=== PATIENT | female | born 1975 | race African-American/Black ===

== ENCOUNTER 2023-02-17 00:41 | Inpatient (IN) | payer OTHER ==
[~2023-02-17] VITALS: Ht 175.3 cm; Wt 84.8 kg
[2023-02-17] VITALS (67 sets, daily range): BP systolic 78–106; BP diastolic 37–78; PULSE 97–141; RESP 7–46; TEMP 97.2–97.9
[2023-02-17] MEDS ORDERED: ALBUTEROL (0.083%) 2.5MG/3ML NEB HHN STA (00:50)
[2023-02-17] MEDS ORDERED: FUROSEMIDE 40MG/4ML VIAL IV ONE (01:00)
[2023-02-17] MEDS ORDERED: ONDANSETRON HCL 4MG/2ML INJ IV ONE (01:00)
[2023-02-17] MEDS ORDERED: DILTIAZEM HCL 5MG/ML 5ML VIAL IV ONE ×3 (01:15→02:30)
[2023-02-17 01:19] LABS: CHLORIDE 108 mEq/L (98-107); HCG SCREEN NEGATIVE
[2023-02-17 01:37] LABS: BASOPHILS % 0.3 % (0.0-2.0); EOSINOPHILS % 0.1 % (0.0-5.0); LYMPHOCYTES % 11.1 % (20.0-50.0); MEAN CORPUSCULAR HEMOGLOBIN 19.8 pg (28.0-32.0); MEAN CORPUSCULAR VOLUME 73.1 fL (81.0-99.0); MEAN PLATELET VOLUME 8.5 fl (7.4-10.4); MONOCYTES % 3.5 % (2.0-8.0); PLATELET 310 x1000/uL (130-400); RED BLOOD CELL COUNT 3.51 mill/uL (4.2-5.4); RED CELL DISTRIBUTION WIDTH 22.2 % (11.6-14.6)
[2023-02-17 01:41] LABS: HEMATOCRIT. 25.7 % (36.0-48.0); HEMOGLOBIN. 6.9 g/dL (12.0-16.0)
[2023-02-17] MEDS ORDERED: PROPOFOL 10MG/ML 100ML 100 ML IV STA (01:52)
[2023-02-17] MEDS ORDERED: CLONIDINE 0.1MG TABLET PO PRN (03:30)
[2023-02-17] MEDS ORDERED: DOCUSATE SODIUM 100MG CAPSULE PO PRN (03:30)
[2023-02-17] MEDS ORDERED: MAGNESIUM/ALUMINUM HYDROXIDE/SIMETHICONE 30ML UDC PO PRN (03:30)
[2023-02-17] MEDS ORDERED: ONDANSETRON HCL 4MG/2ML INJ IV PRN (03:30)
[2023-02-17] MEDS ORDERED: DEXTROSE 50% WATER 50ML SYRINGE IV PRN (03:30)
[2023-02-17] MEDS ORDERED: GUAIFENESIN 200MG/10ML SUGAR FREE UDC PO PRN (03:30)
[2023-02-17] MEDS ORDERED: IPRATROPIUM/ALBUTEROL 0.5-3(2.5)MG/3ML NEB HHN PRN (03:30)
[2023-02-17 03:32] LABS: BG BASE EXCESS -13.1 mmol/L (-2.0-2.0); BG CARBOXYHEMOGLOBIN 1.3 % (0.5-1.5); BG DEOXYHEMOGLOBIN 7.8 % (0.0-5.0); BG FRACTION INSPIRED OXYGEN 100; BG METHEMOGLOBIN 0.6 % (0.0-1.5); BG OXYHEMOGLOBIN 90.3 % (94.0-97.0); BG PCO2 30.4 mmHg (35.0-45.0); BG PH 7.248 (7.350-7.450); BG PO2 80.2 mmHg (75.0-100.0); BG SAMPLE SITE RIGHT RADIAL; BG TOTAL HEMOGLOBIN 8.2 g/dL (12.0-18.0); BG TOTAL RESPIRATORY RATE 43 b/min; BG VENT MODE VENT - AC
[2023-02-17] MEDS ORDERED: MIDAZOLAM 100MG/100ML PMX 100 ML IV PRN ×2 (03:45→13:00)
[2023-02-17 03:49] LABS: PLATELET ESTIMATE NORMAL
[2023-02-17] MEDS ORDERED: MIDAZOLAM HCL 100 MG in SODIUM CHLORIDE 0.9% 100 ML IV PRN (04:00)
[2023-02-17 04:55] LABS: T4 FREE 1.36 ng/dL (0.76-1.46)
[2023-02-17] MEDS ORDERED: OCTREOTIDE 1,000 MCG in SODIUM CHLORIDE 0.9% 98 ML IV PRN (05:00)
[2023-02-17] MEDS ORDERED: DEXT 5%/0.45% NACL 1000ML 1,000 ML IV ONE (05:30)
[2023-02-17] MEDS ORDERED: PIPERACILLIN/TAZ 3.375G PREMIX 50 ML IV NR (05:45)
[2023-02-17] MEDS ORDERED: VANCOMYCIN 1500MG in DEXTROSE 5% WATER 250ML IV NR (06:00)
[2023-02-17 06:12] LABS: CLARITY URINE CLOUDY (CLEAR); COLOR URINE YELLOW (YELLOW); KETONES URINE NEGATIVE (NEGATIVE); LEUKOCYTE ESTERASE URINE NEGATIVE (NEGATIVE); NITRITE URINE NEGATIVE (NEGATIVE); OCCULT BLOOD URINE 1+ (NEGATIVE); PROTEIN URINE 1+ (NEGATIVE); SPECIFIC GRAVITY URINE 1.008 (1.005-1.030); UROBILINOGEN URINE 0.2 E.U./dL (0.2-1.0)
[2023-02-17] MEDS ORDERED: PHENYLEPHRINE 100 MG in DEXT 5% WATER 240 ML IV PRN (06:15)
[2023-02-17] MEDS: OCTREOTIDE 1,000 MCG in SODIUM CHLORIDE 0.9% 98 ML IV PRN (06:16)
[2023-02-17] MEDS ORDERED: FENTANYL CITRATE/PF 2,500 MCG in SODIUM CHLORIDE 0.9% 200 ML IV PRN (06:45)
[2023-02-17 07:27] LABS: *AMPHETAMINES SCREEN URINE NEGATIVE (NEGATIVE); *BARBITURATES SCREEN URINE NEGATIVE (NEGATIVE); *BENZODIAZEPINES SCREEN URINE NEGATIVE (NEGATIVE); *COCAINE SCREEN URINE NEGATIVE (NEGATIVE); METHADONE URINE SCREEN NEGATIVE (NEGATIVE); OPIATES URINE SCREEN NEGATIVE (NEGATIVE); PHENCYCLIDINE URINE SCREEN NEGATIVE (NEGATIVE)
[2023-02-17 07:35] LABS: CANNABINOID URINE SCREEN PRESUMTIVE POSITIVE (NEGATIVE)
[2023-02-17] MEDS: PHENYLEPHRINE 100 MG in DEXT 5% WATER 240 ML IV PRN (08:00)
[2023-02-17] MEDS: FENTANYL CITRATE/PF 2,500 MCG in SODIUM CHLORIDE 0.9% 200 ML IV PRN (08:00)
[2023-02-17] MEDS ORDERED: LIDOCAINE HCL 1% 10 MG/ML 10ML VIAL ONE (08:45)
[2023-02-17] MEDS ORDERED: FUROSEMIDE 40MG/4ML VIAL IVP SCH (09:00)
[2023-02-17] MEDS ORDERED: PANTOPRAZOLE SODIUM 40 MG/VIAL IV SCH (09:00)
[2023-02-17 09:07] LABS: BG BASE EXCESS -10.6 mmol/L (-2.0-2.0); BG DEOXYHEMOGLOBIN 35.9 % (0.0-5.0); BG FRACTION INSPIRED OXYGEN 100; BG HCO3 ACT 15.5 mmol/L (22.0-26.0); BG METHEMOGLOBIN 0.7 % (0.0-1.5); BG OXYGEN SATURATION 63.5 % (92.0-98.5); BG OXYHEMOGLOBIN 62.4 % (94.0-97.0); BG PCO2 34.9 mmHg (35.0-45.0); BG PH 7.265 (7.350-7.450); BG PO2 40.4 mmHg (75.0-100.0); BG SAMPLE SITE RIGHT RADIAL; BG VENT MODE VENT - AC
[2023-02-17] MEDS: BLOOD SUGAR DIAGNOSTIC STRIP TEST SCH ×4 (09:33→18:00)
[2023-02-17] MEDS: INSULIN LISPRO 100 UNITS/ML SUBCUT SCH ×4 (10:25→18:00)
[2023-02-17] MEDS: IRON SUCROSE COMPLEX 100 MG/5 ML ML IV SCH (10:26)
[2023-02-17] MEDS: PANTOPRAZOLE SODIUM 40 MG/VIAL IV SCH ×2 (10:26→18:05)
[2023-02-17 11:02] LABS: BG BASE EXCESS -11.1 mmol/L (-2.0-2.0); BG DEOXYHEMOGLOBIN 0.4 % (0.0-5.0); BG FRACTION INSPIRED OXYGEN 100; BG HCO3 ACT 13.5 mmol/L (22.0-26.0); BG METHEMOGLOBIN 0.3 % (0.0-1.5); BG OXYGEN SATURATION 99.6 % (92.0-98.5); BG OXYHEMOGLOBIN 98.3 % (94.0-97.0); BG PCO2 25.9 mmHg (35.0-45.0); BG PH 7.335 (7.350-7.450); BG PO2 225.7 mmHg (75.0-100.0); BG SAMPLE SITE RIGHT BRACHIAL; BG TOTAL HEMOGLOBIN 8.3 g/dL (12.0-18.0); BG VENT MODE VENT - AC
[2023-02-17 11:46] LABS: HEMATOCRIT 26.4 % (36.0-48.0); HEMOGLOBIN 7.3 g/dL (12.0-16.0)
[2023-02-17 11:58] LABS: INR 2.6; PARTIAL THROMBOPLASTIN TIME 52.5 sec (23.4-31.0); PROTHROMBIN TIME 25.9 sec (9.6-11.0)
[2023-02-17 12:02] LABS: CREATINE KINASE 418 IU/L (26-192); CREATINE KINASE MB FRACTION 7.5 ng/mL (0.5-3.6); ETHANOL BLOOD < 10 mg/dL (-10)
[2023-02-17] MEDS: THIAMINE HCL 100 MG in SODIUM CHLORIDE 0.9% 49 ML IV SCH (13:21)
[2023-02-17] MEDS: PHYTONADIONE 10MG/ML AMP SUBCUT SCH (13:33)
[2023-02-17] MEDS: MIDAZOLAM HCL 100 MG in SODIUM CHLORIDE 0.9% 100 ML IV PRN (13:58)
[2023-02-17] MEDS ORDERED: PIPERACILLIN/TAZOBACTAM 3.375 G in DEXTROSE 5% WATER 50 ML IV SCH (14:00)
[2023-02-17] MEDS: IPRATROPIUM/ALBUTEROL 0.5-3(2.5)MG/3ML NEB HHN SCH ×2 (14:51→21:26)
[2023-02-17] MEDS: PIPERACILLIN/TAZOBACTAM 3.375 G in DEXTROSE 5% WATER 50 ML IV SCH ×2 (16:48→21:45)
[2023-02-17] MEDS ORDERED: LORAZEPAM 2MG/ML CPJ IM PRN (17:15)
[2023-02-17 17:24] LABS: HEMATOCRIT 28.4 % (36.0-48.0); HEMOGLOBIN 7.9 g/dL (12.0-16.0)
[2023-02-17] MEDS: SODIUM CHLORIDE 0.45% 1,000 ML IV SCH (19:00)
[2023-02-17] MEDS ORDERED: SODIUM CHLORIDE 0.9% 500 ML IV ONE (19:15)
[2023-02-18] VITALS (102 sets, daily range): BP systolic 77–157; BP diastolic 38–81; PULSE 105–146; RESP 15–29; TEMP 97–98.8
[2023-02-18] MEDS: OCTREOTIDE 1,000 MCG in SODIUM CHLORIDE 0.9% 98 ML IV PRN ×2 (01:45→17:19)
[2023-02-18] MEDS: BLOOD SUGAR DIAGNOSTIC STRIP TEST SCH ×4 (01:55→17:48)
[2023-02-18] MEDS: INSULIN LISPRO 100 UNITS/ML SUBCUT SCH ×4 (01:58→17:48)
[2023-02-18] MEDS: IPRATROPIUM/ALBUTEROL 0.5-3(2.5)MG/3ML NEB HHN SCH ×3 (02:02→14:57)
[2023-02-18] MEDS: MIDAZOLAM HCL 100 MG in SODIUM CHLORIDE 0.9% 100 ML IV PRN ×2 (04:45→19:38)
[2023-02-18] MEDS: FENTANYL CITRATE/PF 2,500 MCG in SODIUM CHLORIDE 0.9% 200 ML IV PRN (05:45)
[2023-02-18] MEDS: PHENYLEPHRINE 100 MG in DEXT 5% WATER 240 ML IV PRN ×2 (05:45→13:42)
[2023-02-18] MEDS: PIPERACILLIN/TAZOBACTAM 3.375 G in DEXTROSE 5% WATER 50 ML IV SCH ×3 (06:00→21:35)
[2023-02-18] MEDS: PANTOPRAZOLE SODIUM 40 MG/VIAL IV SCH ×2 (06:00→17:50)
[2023-02-18 06:05] LABS: BASOPHILS % 0.3 % (0.0-2.0); EOSINOPHILS % 1.3 % (0.0-5.0); HEMATOCRIT. 31.2 % (36.0-48.0); HEMOGLOBIN. 8.9 g/dL (12.0-16.0); LYMPHOCYTES % 8.4 % (20.0-50.0); MEAN CORPUSCULAR HEMOGLOBIN 20.7 pg (28.0-32.0); MEAN CORPUSCULAR VOLUME 72.6 fL (81.0-99.0); MONOCYTES % 3.6 % (2.0-8.0); NEUTROPHILS % 86.4 % (40.0-76.0); PLATELET 251 x1000/uL (130-400)
[2023-02-18 06:08] LABS: CHLORIDE 107 mEq/L (98-107)
[2023-02-18] MEDS ORDERED: LACTULOSE 20G/30ML UDC PO NR (07:00)
[2023-02-18] MEDS ORDERED: SODIUM CHLORIDE 0.9% 500 ML IV ONE ×2 (08:45→09:45)
[2023-02-18] MEDS ORDERED: VANCOMYCIN 1.25GM PMX (XELLIA) 250 ML IV SCH (09:00)
[2023-02-18] MEDS ORDERED: LACTULOSE ENEMA 1,000ML BOTTLE PR NR (09:00)
[2023-02-18 09:04] LABS: INR 2.4; PROTHROMBIN TIME 24.1 sec (9.6-11.0)
[2023-02-18] MEDS: PHYTONADIONE 10MG/ML AMP SUBCUT SCH (09:09)
[2023-02-18] MEDS: IRON SUCROSE COMPLEX 100 MG/5 ML ML IV SCH (09:09)
[2023-02-18] MEDS: THIAMINE HCL 100 MG in SODIUM CHLORIDE 0.9% 49 ML IV SCH (09:10)
[2023-02-18] MEDS: VANCOMYCIN 1250MG in DEXTROSE 5% WATER 250ML IV SCH ×2 (09:10→21:35)
[2023-02-18 09:36] LABS: HEMATOCRIT 31.2 % (36.0-48.0); HEMOGLOBIN 8.9 g/dL (12.0-16.0)
[2023-02-18 09:50] LABS: BG BASE EXCESS -10.3 mmol/L (-2.0-2.0); BG CARBOXYHEMOGLOBIN 0.9 % (0.5-1.5); BG DEOXYHEMOGLOBIN 23.4 % (0.0-5.0); BG FRACTION INSPIRED OXYGEN 45; BG HCO3 ACT 17.8 mmol/L (22.0-26.0); BG METHEMOGLOBIN 0.4 % (0.0-1.5); BG OXYGEN SATURATION 76.3 % (92.0-98.5); BG OXYHEMOGLOBIN 75.3 % (94.0-97.0); BG PH 7.177 (7.350-7.450); BG PO2 51.9 mmHg (75.0-100.0); BG SAMPLE SITE LEFT RADIAL; BG TOTAL HEMOGLOBIN 10.5 g/dL (12.0-18.0); BG VENT MODE VENT - AC
[2023-02-18 10:09] LABS: HEPATITIS B SURFACE ANTIGEN NEGATIVE
[2023-02-18] MEDS ORDERED: EPINEPHRINE 5 MG in DEXT 5% WATER 250 ML IV PRN (12:00)
[2023-02-18] MEDS ORDERED: NOREPINEPHRINE 8 MG in DEXT 5% WATER 250 ML IV PRN (12:00)
[2023-02-18] MEDS: LACTULOSE 20G/30ML UDC PO SCH ×2 (12:43→17:50)
[2023-02-18] MEDS: SODIUM CHLORIDE 0.45% 1,000 ML IV SCH (12:43)
[2023-02-18] MEDS ORDERED: POLYMYXIN B SULFATE 500000 UNITS/VIAL ONE (13:08)
[2023-02-18] MEDS ORDERED: BUPIVACAINE HCL/PF 0.5% (5MG/ML) 10ML ONE (13:08)
[2023-02-18] MEDS ORDERED: SKIN ADHESIVE 0.7 GM EA TOP ONE (13:08)
[2023-02-18] MEDS ORDERED: CHLORHEXIDINE GLUCONATE 4% EXTERNAL USE TOP SCH ×2 (15:00→21:00)
[2023-02-18] MEDS ORDERED: ALBUMIN HUMAN 12.5GM/50ML (25%) IV ONE (15:15)
[2023-02-18] MEDS ORDERED: ROCURONIUM BROMIDE 10MG/ML VIAL 5ML IV ONE (15:27)
[2023-02-18] MEDS ORDERED: CEFAZOLIN SODIUM 1000MG/VIAL ONE (16:47)
[2023-02-19] VITALS (108 sets, daily range): BP systolic 84–137; BP diastolic 40–93; PULSE 72–128; RESP 4–40; TEMP 97–98.9
[2023-02-19] MEDS ORDERED: NOREPINEPHRINE 8MG/250ML PMX 250 ML IV PRN (00:45)
[2023-02-19] MEDS: LACTULOSE 20G/30ML UDC PO SCH ×4 (00:48→17:44)
[2023-02-19] MEDS: INSULIN LISPRO 100 UNITS/ML SUBCUT SCH ×5 (00:53→17:48)
[2023-02-19] MEDS ORDERED: NOREPINEPHRINE 8 MG in DEXTROSE 5% WATER 250 ML IV PRN (01:00)
[2023-02-19] MEDS: IPRATROPIUM/ALBUTEROL 0.5-3(2.5)MG/3ML NEB HHN SCH ×4 (01:20→19:59)
[2023-02-19] MEDS: PHENYLEPHRINE 100 MG in DEXT 5% WATER 240 ML IV PRN ×4 (01:37→21:45)
[2023-02-19] MEDS: SODIUM CHLORIDE 0.45% 1,000 ML IV SCH ×2 (04:57→18:49)
[2023-02-19 05:51] LABS: HEMATOCRIT. 30.2 % (36.0-48.0); HEMOGLOBIN. 8.7 g/dL (12.0-16.0); MEAN CORPUSCULAR HEMOGLOBIN 19.9 pg (28.0-32.0); MEAN CORPUSCULAR VOLUME 68.9 fL (81.0-99.0); MEAN PLATELET VOLUME 8.6 fl (7.4-10.4); PLATELET 236 x1000/uL (130-400); RED BLOOD CELL COUNT 4.38 mill/uL (4.2-5.4); RED CELL DISTRIBUTION WIDTH 23.8 % (11.6-14.6)
[2023-02-19] MEDS: BLOOD SUGAR DIAGNOSTIC STRIP TEST SCH ×4 (05:52→17:41)
[2023-02-19] MEDS: PANTOPRAZOLE SODIUM 40 MG/VIAL IV SCH ×2 (05:57→17:44)
[2023-02-19] MEDS: PIPERACILLIN/TAZOBACTAM 3.375 G in DEXTROSE 5% WATER 50 ML IV SCH ×3 (05:58→21:00)
[2023-02-19 06:04] LABS: INR 2.1; PROTHROMBIN TIME 21.9 sec (9.6-11.0)
[2023-02-19 07:12] LABS: CHLORIDE 105 mEq/L (98-107)
[2023-02-19 07:23] LABS: PHOSPHORUS 3.6 mg/dL (2.5-4.9)
[2023-02-19] MEDS ORDERED: CHLORHEXIDINE GLUCONATE 4% EXTERNAL USE TOP SCH (09:00)
[2023-02-19 09:21] LABS: BG BASE EXCESS -8.2 mmol/L (-2.0-2.0); BG CARBOXYHEMOGLOBIN 0.2 % (0.5-1.5); BG DEOXYHEMOGLOBIN 0.4 % (0.0-5.0); BG FRACTION INSPIRED OXYGEN 80; BG HCO3 ACT 18.3 mmol/L (22.0-26.0); BG METHEMOGLOBIN 0.3 % (0.0-1.5); BG OXYGEN SATURATION 99.6 % (92.0-98.5); BG OXYHEMOGLOBIN 99.1 % (94.0-97.0); BG PCO2 41.8 mmHg (35.0-45.0); BG PH 7.259 (7.350-7.450); BG PO2 234.3 mmHg (75.0-100.0); BG SAMPLE SITE ALINE; BG TOTAL HEMOGLOBIN 8.9 g/dL (12.0-18.0); BG VENT MODE VENT - AC
[2023-02-19] MEDS: VANCOMYCIN 1250MG in DEXTROSE 5% WATER 250ML IV SCH (09:34)
[2023-02-19] MEDS: THIAMINE HCL 100 MG in SODIUM CHLORIDE 0.9% 49 ML IV SCH (09:34)
[2023-02-19] MEDS: IRON SUCROSE COMPLEX 100 MG/5 ML ML IV SCH (09:34)
[2023-02-19] MEDS: PHYTONADIONE 10MG/ML AMP SUBCUT SCH (09:35)
[2023-02-19] MEDS: OCTREOTIDE 1,000 MCG in SODIUM CHLORIDE 0.9% 98 ML IV PRN (13:22)
[2023-02-19 13:58] LABS: NUCLEATED RED BLOOD CELLS 17 /100 WBC
[2023-02-19 14:05] LABS: PLATELET ESTIMATE NORMAL
[2023-02-19] MEDS ORDERED: SODIUM CHLORIDE 0.9% 250 ML IV ONE (16:30)
[2023-02-19] MEDS: RIFAXIMIN 550 MG TABLET GT SCH (21:00)
[2023-02-20] VITALS (108 sets, daily range): BP systolic 72–149; BP diastolic 43–105; PULSE 103–166; RESP 6–46; TEMP 97–98.1
[2023-02-20] MEDS: BLOOD SUGAR DIAGNOSTIC STRIP TEST SCH ×4 (00:31→17:23)
[2023-02-20] MEDS: INSULIN LISPRO 100 UNITS/ML SUBCUT SCH ×6 (00:42→22:45)
[2023-02-20] MEDS: LACTULOSE 20G/30ML UDC PO SCH ×4 (00:42→17:23)
[2023-02-20] MEDS: IPRATROPIUM/ALBUTEROL 0.5-3(2.5)MG/3ML NEB HHN SCH ×4 (01:54→21:00)
[2023-02-20] MEDS ORDERED: FUROSEMIDE 20MG/2ML VIAL IVP NR (02:00)
[2023-02-20 05:19] LABS: CHLORIDE 107 mEq/L (98-107)
[2023-02-20 05:23] LABS: HEMATOCRIT. 29.1 % (36.0-48.0); HEMOGLOBIN. 8.6 g/dL (12.0-16.0); MEAN CORPUSCULAR HEMOGLOBIN 20.2 pg (28.0-32.0); MEAN CORPUSCULAR VOLUME 68.5 fL (81.0-99.0); MEAN PLATELET VOLUME 8.5 fl (7.4-10.4); PLATELET 200 x1000/uL (130-400); RED BLOOD CELL COUNT 4.26 mill/uL (4.2-5.4); RED CELL DISTRIBUTION WIDTH 23.6 % (11.6-14.6)
[2023-02-20 05:27] LABS: PHOSPHORUS 2.4 mg/dL (2.5-4.9)
[2023-02-20] MEDS ORDERED: POTASSIUM CHLORIDE 20MEQ/PACKET NG NR (06:00)
[2023-02-20] MEDS ORDERED: MAGNESIUM 1 G PREMIX 100 ML IV NR (06:00)
[2023-02-20] MEDS: PANTOPRAZOLE SODIUM 40 MG/VIAL IV SCH ×2 (06:12→17:22)
[2023-02-20] MEDS: PIPERACILLIN/TAZOBACTAM 3.375 G in DEXTROSE 5% WATER 50 ML IV SCH ×3 (06:12→22:43)
[2023-02-20] MEDS ORDERED: DEXTROSE 50% WATER 50ML SYRINGE IV PRN (07:45)
[2023-02-20 08:08] LABS: HIV SCREEN 4G Non Reactive (Non Reactive)
[2023-02-20 08:26] LABS: BG BASE EXCESS -3.8 mmol/L (-2.0-2.0); BG CARBOXYHEMOGLOBIN 1.2 % (0.5-1.5); BG DEOXYHEMOGLOBIN 0.6 % (0.0-5.0); BG FRACTION INSPIRED OXYGEN 50; BG HCO3 ACT 20.3 mmol/L (22.0-26.0); BG METHEMOGLOBIN 0.5 % (0.0-1.5); BG OXYGEN SATURATION 99.4 % (92.0-98.5); BG OXYHEMOGLOBIN 97.7 % (94.0-97.0); BG PH 7.407 (7.350-7.450); BG PO2 182.4 mmHg (75.0-100.0); BG SAMPLE SITE ALINE; BG TOTAL HEMOGLOBIN 8.9 g/dL (12.0-18.0); BG TOTAL RESPIRATORY RATE 20 b/min; BG VENT MODE VENT - AC
[2023-02-20] MEDS: SODIUM CHLORIDE 0.45% 1,000 ML IV SCH ×2 (08:28→22:42)
[2023-02-20] MEDS: MIDODRINE HCL 5MG TABLET PO SCH ×4 (08:28→17:23)
[2023-02-20] MEDS ORDERED: POTASSIUM PHOS,M-BASIC-D-BASIC 10 MMOL in DEXT 5% WATER 246.6667 ML IV NR (09:00)
[2023-02-20] MEDS: THIAMINE HCL 100 MG in SODIUM CHLORIDE 0.9% 49 ML IV SCH (09:11)
[2023-02-20] MEDS: RIFAXIMIN 550 MG TABLET GT SCH ×2 (09:12→22:46)
[2023-02-20] MEDS: VANCOMYCIN 1G PREMIX 200 ML IV SCH (09:12)
[2023-02-20] MEDS: PHYTONADIONE 10MG/ML AMP SUBCUT SCH (09:12)
[2023-02-20 10:57] LABS: NUCLEATED RED BLOOD CELLS 62 /100 WBC
[2023-02-20 11:00] LABS: PLATELET ESTIMATE NORMAL
[2023-02-20] MEDS: PHENYLEPHRINE 100 MG in DEXT 5% WATER 240 ML IV PRN (11:15)
[2023-02-20] MEDS: FENTANYL CITRATE/PF 2,500 MCG in SODIUM CHLORIDE 0.9% 200 ML IV PRN (16:00)
[2023-02-20] MEDS ORDERED: FUROSEMIDE 40MG/4ML VIAL IVP NR (20:30)
[2023-02-21] VITALS (107 sets, daily range): BP systolic 85–255; BP diastolic 50–246; PULSE 100–135; RESP 17–53; TEMP 97.7–98.9
[2023-02-21] MEDS: LACTULOSE 20G/30ML UDC PO SCH ×4 (00:42→17:32)
[2023-02-21] MEDS: IPRATROPIUM/ALBUTEROL 0.5-3(2.5)MG/3ML NEB HHN SCH ×4 (02:21→20:48)
[2023-02-21] MEDS: BLOOD SUGAR DIAGNOSTIC STRIP TEST SCH ×4 (06:00→17:35)
[2023-02-21] MEDS: PIPERACILLIN/TAZOBACTAM 3.375 G in DEXTROSE 5% WATER 50 ML IV SCH ×3 (06:13→21:02)
[2023-02-21] MEDS: PANTOPRAZOLE SODIUM 40 MG/VIAL IV SCH ×2 (06:13→17:32)
[2023-02-21 06:22] LABS: HEMATOCRIT. 36.3 % (36.0-48.0); HEMOGLOBIN. 11.1 g/dL (12.0-16.0); MEAN CORPUSCULAR HEMOGLOBIN 21.4 pg (28.0-32.0); MEAN PLATELET VOLUME 8.6 fl (7.4-10.4); PLATELET 155 x1000/uL (130-400); RED BLOOD CELL COUNT 5.18 mill/uL (4.2-5.4); RED CELL DISTRIBUTION WIDTH 26.2 % (11.6-14.6)
[2023-02-21 06:34] LABS: CHLORIDE 105 mEq/L (98-107)
[2023-02-21 06:35] LABS: INR 1.4
[2023-02-21 06:44] LABS: PHOSPHORUS 2.2 mg/dL (2.5-4.9)
[2023-02-21] MEDS ORDERED: POTASSIUM CHLORIDE 20MEQ/PACKET PO NR ×2 (07:45→16:00)
[2023-02-21] MEDS: VANCOMYCIN 1G PREMIX 200 ML IV SCH (08:10)
[2023-02-21] MEDS: RIFAXIMIN 550 MG TABLET GT SCH ×2 (08:10→21:02)
[2023-02-21] MEDS: MIDODRINE HCL 5MG TABLET PO SCH ×3 (08:11→17:33)
[2023-02-21] MEDS: INSULIN LISPRO 100 UNITS/ML SUBCUT SCH ×3 (08:12→17:35)
[2023-02-21 08:55] LABS: BG DEOXYHEMOGLOBIN 2.6 % (0.0-5.0); BG FRACTION INSPIRED OXYGEN 35; BG HCO3 ACT 21.9 mmol/L (22.0-26.0); BG METHEMOGLOBIN 0.3 % (0.0-1.5); BG OXYGEN SATURATION 97.4 % (92.0-98.5); BG OXYHEMOGLOBIN 97.1 % (94.0-97.0); BG PCO2 34.3 mmHg (35.0-45.0); BG PH 7.423 (7.350-7.450); BG PO2 100.6 mmHg (75.0-100.0); BG SAMPLE SITE ALINE; BG TOTAL HEMOGLOBIN 10.8 g/dL (12.0-18.0); BG TOTAL RESPIRATORY RATE 20 b/min; BG VENT MODE VENT - AC
[2023-02-21] MEDS ORDERED: POTASSIUM PHOS,M-BASIC-D-BASIC 10 MMOL in DEXT 5% WATER 246.6667 ML IV NR (09:00)
[2023-02-21] MEDS: INSULIN GLARGINE 100 UNITS/ML SUBCUT SCH (09:51)
[2023-02-21] MEDS: SODIUM CHLORIDE 0.45% 1,000 ML IV SCH (13:05)
[2023-02-21] MEDS: METOCLOPRAMIDE HCL 10MG/2ML VIAL IV SCH ×2 (14:30→17:33)
[2023-02-21 14:58] LABS: ATYPICAL LYMPHOCYTES 1; NUCLEATED RED BLOOD CELLS 97 /100 WBC; PLATELET ESTIMATE NORMAL
[2023-02-22] VITALS (101 sets, daily range): BP systolic 86–176; BP diastolic 58–128; PULSE 99–152; RESP 16–39; TEMP 97.8–99.2
[2023-02-22] MEDS: BLOOD SUGAR DIAGNOSTIC STRIP TEST SCH ×5 (00:05→23:42)
[2023-02-22] MEDS: LACTULOSE 20G/30ML UDC PO SCH ×5 (00:09→23:43)
[2023-02-22] MEDS: METOCLOPRAMIDE HCL 10MG/2ML VIAL IV SCH ×5 (00:09→23:43)
[2023-02-22] MEDS: VANCOMYCIN 1G PREMIX 200 ML IV SCH ×2 (00:09→17:59)
[2023-02-22] MEDS: INSULIN LISPRO 100 UNITS/ML SUBCUT SCH ×5 (00:10→23:42)
[2023-02-22] MEDS: SODIUM CHLORIDE 0.45% 1,000 ML IV SCH ×2 (00:10→18:01)
[2023-02-22] MEDS: IPRATROPIUM/ALBUTEROL 0.5-3(2.5)MG/3ML NEB HHN SCH ×2 (02:34→09:25)
[2023-02-22] MEDS: PHENYLEPHRINE 100 MG in DEXT 5% WATER 240 ML IV PRN (02:37)
[2023-02-22] MEDS: PIPERACILLIN/TAZOBACTAM 3.375 G in DEXTROSE 5% WATER 50 ML IV SCH ×3 (05:37→21:27)
[2023-02-22] MEDS: PANTOPRAZOLE SODIUM 40 MG/VIAL IV SCH ×2 (05:37→17:58)
[2023-02-22 06:21] LABS: HEMATOCRIT. 35.6 % (36.0-48.0); MEAN CORPUSCULAR HEMOGLOBIN 22.3 pg (28.0-32.0); MEAN CORPUSCULAR VOLUME 71.7 fL (81.0-99.0); MEAN PLATELET VOLUME 8.5 fl (7.4-10.4); PLATELET 123 x1000/uL (130-400); RED BLOOD CELL COUNT 4.96 mill/uL (4.2-5.4); RED CELL DISTRIBUTION WIDTH 26.7 % (11.6-14.6)
[2023-02-22 06:29] LABS: INR 1.4; PROTHROMBIN TIME 14.9 sec (9.6-11.0)
[2023-02-22 06:32] LABS: CHLORIDE 105 mEq/L (98-107)
[2023-02-22 06:42] LABS: PHOSPHORUS 2.1 mg/dL (2.5-4.9)
[2023-02-22] MEDS ORDERED: POTASSIUM CHLORIDE 20MEQ/PACKET PO SCH (07:45)
[2023-02-22] MEDS ORDERED: MAGNESIUM 2 G PREMIX 50 ML IV ONE (07:45)
[2023-02-22] MEDS ORDERED: POTASSIUM PHOS,M-BASIC-D-BASIC 15 MMOL in DEXT 5% WATER 245 ML IV SCH (08:30)
[2023-02-22 08:55] LABS: BG BASE EXCESS -1.1 mmol/L (-2.0-2.0); BG CARBOXYHEMOGLOBIN 1.2 % (0.5-1.5); BG DEOXYHEMOGLOBIN 4.4 % (0.0-5.0); BG FRACTION INSPIRED OXYGEN 35; BG METHEMOGLOBIN 0.3 % (0.0-1.5); BG OXYGEN SATURATION 95.5 % (92.0-98.5); BG OXYHEMOGLOBIN 94.1 % (94.0-97.0); BG PCO2 36.2 mmHg (35.0-45.0); BG PO2 75.6 mmHg (75.0-100.0); BG SAMPLE SITE RIGHT RADIAL; BG TOTAL HEMOGLOBIN 13.1 g/dL (12.0-18.0); BG VENT MODE VENT - AC
[2023-02-22] MEDS: RIFAXIMIN 550 MG TABLET GT SCH ×2 (08:58→21:27)
[2023-02-22] MEDS: MIDODRINE HCL 5MG TABLET PO SCH ×3 (08:58→17:00)
[2023-02-22] MEDS ORDERED: POTASSIUM PHOS,M-BASIC-D-BASIC 20 MMOL in DEXT 5% WATER 243.3333 ML IV NR (09:00)
[2023-02-22] MEDS: INSULIN GLARGINE 100 UNITS/ML SUBCUT SCH (09:08)
[2023-02-22 09:57] LABS: NUCLEATED RED BLOOD CELLS 37 /100 WBC
[2023-02-22 10:02] LABS: PLATELET ESTIMATE SLIGHTLY DECREASED
[2023-02-22] MEDS ORDERED: AMIODARONE HCL 900 MG in DEXT 5% WATER 482 ML IV PRN (14:30)
[2023-02-22] MEDS ORDERED: AMIODARONE HCL 150 MG in DEXT 5% WATER 100 ML IV NR (14:30)
[2023-02-22] MEDS: IRON SUCROSE COMPLEX 100 MG/5 ML ML IV SCH (15:20)
[2023-02-22] MEDS ORDERED: LORAZEPAM 2MG/ML CPJ IV PRN (17:15)
[2023-02-22] MEDS: LORAZEPAM 2MG/ML CPJ IV PRN (20:13)
[2023-02-22 21:19] LABS: CHLORIDE 107 mEq/L (98-107)
[2023-02-22] MEDS ORDERED: FENTANYL 2500MCG/250ML PMX 250 ML IV PRN (22:15)
[2023-02-22] MEDS ORDERED: FENTANYL CITRATE 2,500 MCG in SODIUM CHLORIDE 0.9% 200 ML IV PRN (22:45)
[2023-02-23] VITALS (127 sets, daily range): BP systolic 78–170; BP diastolic 49–102; PULSE 64–136; RESP 13–45; TEMP 97.5–98.6
[2023-02-23 04:39] LABS: BASOPHILS % 0.2 % (0.0-2.0); EOSINOPHILS % 0.1 % (0.0-5.0); LYMPHOCYTES % 7.3 % (20.0-50.0); MEAN CORPUSCULAR HEMOGLOBIN 22.2 pg (28.0-32.0); MEAN CORPUSCULAR VOLUME 71.4 fL (81.0-99.0); MEAN PLATELET VOLUME 8.8 fl (7.4-10.4); NEUTROPHILS % 80.4 % (40.0-76.0); PLATELET 130 x1000/uL (130-400); RED CELL DISTRIBUTION WIDTH 26.3 % (11.6-14.6)
[2023-02-23 04:41] LABS: INR 1.6; PROTHROMBIN TIME 16.7 sec (9.6-11.0)
[2023-02-23 05:00] LABS: PHOSPHORUS 5.3 mg/dL (2.5-4.9)
[2023-02-23] MEDS: LACTULOSE 20G/30ML UDC PO SCH ×3 (06:00→17:18)
[2023-02-23] MEDS: BLOOD SUGAR DIAGNOSTIC STRIP TEST SCH ×3 (06:00→17:18)
[2023-02-23] MEDS: INSULIN LISPRO 100 UNITS/ML SUBCUT SCH ×3 (06:00→17:31)
[2023-02-23] MEDS ORDERED: PHENYLEPHRINE 100 MG in DEXT 5% WATER 240 ML IV PRN (06:15)
[2023-02-23] MEDS: SODIUM CHLORIDE 0.45% 1,000 ML IV SCH (06:20)
[2023-02-23] MEDS: METOCLOPRAMIDE HCL 10MG/2ML VIAL IV SCH ×3 (06:28→17:16)
[2023-02-23] MEDS: PANTOPRAZOLE SODIUM 40 MG/VIAL IV SCH ×2 (06:28→17:16)
[2023-02-23] MEDS: PIPERACILLIN/TAZOBACTAM 3.375 G in DEXTROSE 5% WATER 50 ML IV SCH ×3 (06:28→21:30)
[2023-02-23] MEDS: MIDAZOLAM HCL 100 MG in SODIUM CHLORIDE 0.9% 80 ML IV PRN (06:29)
[2023-02-23] MEDS ORDERED: DEXT 5%/0.9% NACL 1,000 ML IV SCH ×2 (08:45→13:15)
[2023-02-23 09:17] LABS: BG CARBOXYHEMOGLOBIN 1.6 % (0.5-1.5); BG DEOXYHEMOGLOBIN 0.2 % (0.0-5.0); BG FRACTION INSPIRED OXYGEN 100; BG HCO3 ACT 18.8 mmol/L (22.0-26.0); BG METHEMOGLOBIN 0.5 % (0.0-1.5); BG OXYGEN SATURATION 99.8 % (92.0-98.5); BG OXYHEMOGLOBIN 97.7 % (94.0-97.0); BG PCO2 35.2 mmHg (35.0-45.0); BG PH 7.346 (7.350-7.450); BG PO2 281.5 mmHg (75.0-100.0); BG SAMPLE SITE ALINE; BG TOTAL HEMOGLOBIN 13.4 g/dL (12.0-18.0); BG VENT MODE VENT - AC
[2023-02-23] MEDS: MIDODRINE HCL 5MG TABLET PO SCH ×3 (09:26→17:17)
[2023-02-23] MEDS: RIFAXIMIN 550 MG TABLET GT SCH ×2 (09:26→21:30)
[2023-02-23] MEDS: INSULIN GLARGINE 100 UNITS/ML SUBCUT SCH (09:46)
[2023-02-23] MEDS: VANCOMYCIN 1G PREMIX 200 ML IV SCH (11:06)
[2023-02-23 12:47] LABS: HEMATOCRIT 35.4 % (36.0-48.0); HEMOGLOBIN 10.4 g/dL (12.0-16.0)
[2023-02-23] MEDS ORDERED: SODIUM BICARBONATE IV ONE (14:00)
[2023-02-23] MEDS ORDERED: DEXT IV ONE (14:00)
[2023-02-23] MEDS ORDERED: NACL IV ONE (14:00)
[2023-02-23] MEDS: IRON SUCROSE COMPLEX 100 MG/5 ML ML IV SCH (15:00)
[2023-02-23 19:59] LABS: HEMATOCRIT 35.1 % (36.0-48.0); HEMOGLOBIN 10.7 g/dL (12.0-16.0); MEAN CORPUSCULAR HEMOGLOBIN 22.1 pg (28.0-32.0); MEAN CORPUSCULAR VOLUME 72.6 fL (81.0-99.0); PLATELET 106 x1000/uL (130-400); RED BLOOD CELL COUNT 4.84 mill/uL (4.2-5.4)
[2023-02-24] VITALS (114 sets, daily range): BP systolic 80–170; BP diastolic 43–104; PULSE 86–121; RESP 0–33; TEMP 97.3–97.6
[2023-02-24] MEDS: METOCLOPRAMIDE HCL 10MG/2ML VIAL IV SCH ×5 (00:32→23:43)
[2023-02-24] MEDS: LACTULOSE 20G/30ML UDC PO SCH ×5 (00:32→23:43)
[2023-02-24] MEDS: INSULIN LISPRO 100 UNITS/ML SUBCUT SCH ×5 (00:33→23:45)
[2023-02-24] MEDS: BLOOD SUGAR DIAGNOSTIC STRIP TEST SCH ×5 (00:34→23:46)
[2023-02-24 00:42] LABS: HEMATOCRIT 36.1 % (36.0-48.0); HEMOGLOBIN 11.1 g/dL (12.0-16.0); MEAN CORPUSCULAR HEMOGLOBIN 22.4 pg (28.0-32.0); MEAN CORPUSCULAR VOLUME 73.1 fL (81.0-99.0); PLATELET 114 x1000/uL (130-400); RED BLOOD CELL COUNT 4.94 mill/uL (4.2-5.4); RED CELL DISTRIBUTION WIDTH 26.6 % (11.6-14.6)
[2023-02-24] MEDS: MIDAZOLAM HCL 100 MG in SODIUM CHLORIDE 0.9% 80 ML IV PRN (02:04)
[2023-02-24 04:15] LABS: HEMATOCRIT. 35.5 % (36.0-48.0); HEMOGLOBIN. 10.8 g/dL (12.0-16.0); MEAN CORPUSCULAR VOLUME 72.5 fL (81.0-99.0); MEAN PLATELET VOLUME 8.5 fl (7.4-10.4); PLATELET 108 x1000/uL (130-400); RED BLOOD CELL COUNT 4.89 mill/uL (4.2-5.4); RED CELL DISTRIBUTION WIDTH 25.9 % (11.6-14.6)
[2023-02-24 04:23] LABS: CHLORIDE 110 mEq/L (98-107)
[2023-02-24 04:30] LABS: PHOSPHORUS 3.2 mg/dL (2.5-4.9); VANCOMYCIN TROUGH 16.2 ug/mL (5.0-10.0)
[2023-02-24 04:43] LABS: INR 1.5
[2023-02-24] MEDS: PIPERACILLIN/TAZOBACTAM 3.375 G in DEXTROSE 5% WATER 50 ML IV SCH ×3 (06:12→21:47)
[2023-02-24] MEDS: PANTOPRAZOLE SODIUM 40 MG/VIAL IV SCH ×2 (06:12→17:08)
[2023-02-24] MEDS: VANCOMYCIN 1G PREMIX 200 ML IV SCH ×2 (06:12→23:44)
[2023-02-24] MEDS: DEXT 5%/0.9% NACL 1,000 ML IV SCH ×2 (07:47→23:44)
[2023-02-24 08:09] LABS: BG CARBOXYHEMOGLOBIN 1.6 % (0.5-1.5); BG DEOXYHEMOGLOBIN 0.9 % (0.0-5.0); BG FRACTION INSPIRED OXYGEN 40; BG HCO3 ACT 23.1 mmol/L (22.0-26.0); BG METHEMOGLOBIN 0.3 % (0.0-1.5); BG OXYGEN SATURATION 99.1 % (92.0-98.5); BG OXYHEMOGLOBIN 97.2 % (94.0-97.0); BG PCO2 32.3 mmHg (35.0-45.0); BG PH 7.472 (7.350-7.450); BG PO2 143.8 mmHg (75.0-100.0); BG SAMPLE SITE ALINE; BG TOTAL HEMOGLOBIN 11.5 g/dL (12.0-18.0); BG TOTAL RESPIRATORY RATE 23 b/min; BG VENT MODE VENT - AC
[2023-02-24] MEDS: RIFAXIMIN 550 MG TABLET GT SCH ×2 (10:08→21:45)
[2023-02-24] MEDS: MIDODRINE HCL 5MG TABLET PO SCH ×3 (10:09→17:09)
[2023-02-24] MEDS: INSULIN GLARGINE 100 UNITS/ML SUBCUT SCH (10:10)
[2023-02-24 10:19] LABS: NUCLEATED RED BLOOD CELLS 46 /100 WBC; PLATELET ESTIMATE SLIGHTLY DECREASED
[2023-02-24 12:28] LABS: HEMATOCRIT 36.9 % (36.0-48.0); HEMOGLOBIN 11.1 g/dL (12.0-16.0); MEAN CORPUSCULAR HEMOGLOBIN 22.3 pg (28.0-32.0); MEAN CORPUSCULAR VOLUME 73.9 fL (81.0-99.0); PLATELET 119 x1000/uL (130-400); RED BLOOD CELL COUNT 4.99 mill/uL (4.2-5.4); RED CELL DISTRIBUTION WIDTH 26.2 % (11.6-14.6)
[2023-02-24 12:30] LABS: BG BASE EXCESS -3.8 mmol/L (-2.0-2.0); BG CARBOXYHEMOGLOBIN 1.3 % (0.5-1.5); BG DEOXYHEMOGLOBIN 2.6 % (0.0-5.0); BG FRACTION INSPIRED OXYGEN 35; BG HCO3 ACT 24.7 mmol/L (22.0-26.0); BG METHEMOGLOBIN 0.3 % (0.0-1.5); BG OXYGEN SATURATION 97.4 % (92.0-98.5); BG OXYHEMOGLOBIN 95.8 % (94.0-97.0); BG PCO2 60.5 mmHg (35.0-45.0); BG PH 7.229 (7.350-7.450); BG SAMPLE SITE ALINE; BG TOTAL HEMOGLOBIN 13.1 g/dL (12.0-18.0); BG TOTAL RESPIRATORY RATE 39 b/min; BG VENT MODE VENT - SIMV
[2023-02-24] MEDS ORDERED: POTASSIUM CHLORIDE 20MEQ/PACKET PO SCH (13:15)
[2023-02-24 14:11] LABS: BG BASE EXCESS 1.6 mmol/L (-2.0-2.0); BG CARBOXYHEMOGLOBIN 1.9 % (0.5-1.5); BG DEOXYHEMOGLOBIN 1.4 % (0.0-5.0); BG FRACTION INSPIRED OXYGEN 40; BG HCO3 ACT 25.6 mmol/L (22.0-26.0); BG METHEMOGLOBIN 0.3 % (0.0-1.5); BG OXYGEN SATURATION 98.6 % (92.0-98.5); BG OXYHEMOGLOBIN 96.4 % (94.0-97.0); BG PCO2 37.9 mmHg (35.0-45.0); BG PH 7.447 (7.350-7.450); BG PO2 128.3 mmHg (75.0-100.0); BG SAMPLE SITE ALINE; BG TOTAL HEMOGLOBIN 11.2 g/dL (12.0-18.0); BG TOTAL RESPIRATORY RATE 22 b/min; BG VENT MODE VENT - AC
[2023-02-24] MEDS: IRON SUCROSE COMPLEX 100 MG/5 ML ML IV SCH ×2 (15:00→17:24)
[2023-02-24] MEDS ORDERED: IRON SUCROSE COMPLEX 100 MG/5 ML ML IV SCH (17:30)
[2023-02-25] VITALS (80 sets, daily range): BP systolic 91–143; BP diastolic 55–114; PULSE 98–126; RESP 13–39; TEMP 97.6–98.4
[2023-02-25] MEDS: LACTULOSE 20G/30ML UDC PO SCH (05:13)
[2023-02-25] MEDS: METOCLOPRAMIDE HCL 10MG/2ML VIAL IV SCH ×3 (05:13→17:28)
[2023-02-25] MEDS: PANTOPRAZOLE SODIUM 40 MG/VIAL IV SCH ×2 (05:14→17:28)
[2023-02-25] MEDS: PIPERACILLIN/TAZOBACTAM 3.375 G in DEXTROSE 5% WATER 50 ML IV SCH (05:14)
[2023-02-25] MEDS: BLOOD SUGAR DIAGNOSTIC STRIP TEST SCH ×7 (05:15→21:00)
[2023-02-25] MEDS: INSULIN LISPRO 100 UNITS/ML SUBCUT SCH ×5 (05:15→21:00)
[2023-02-25 05:47] LABS: CHLORIDE 115 mEq/L (98-107)
[2023-02-25] MEDS ORDERED: DEXTROSE 50% WATER 50ML SYRINGE IV PRN (07:15)
[2023-02-25] MEDS ORDERED: POTASSIUM CHLORIDE 20MEQ TABLET SR PO ONE (07:15)
[2023-02-25] MEDS ORDERED: POTASSIUM CHLORIDE 20MEQ/PACKET PO NR (07:30)
[2023-02-25] MEDS ORDERED: KCL 20MEQ/100ML PREMIX 100 ML IV NR (08:00)
[2023-02-25 08:27] LABS: BG BASE EXCESS 2.8 mmol/L (-2.0-2.0); BG CARBOXYHEMOGLOBIN 0.8 % (0.5-1.5); BG DEOXYHEMOGLOBIN 1.1 % (0.0-5.0); BG FRACTION INSPIRED OXYGEN 40; BG HCO3 ACT 26.4 mmol/L (22.0-26.0); BG METHEMOGLOBIN 0.2 % (0.0-1.5); BG OXYGEN SATURATION 98.9 % (92.0-98.5); BG OXYHEMOGLOBIN 97.9 % (94.0-97.0); BG PH 7.472 (7.350-7.450); BG PO2 143.9 mmHg (75.0-100.0); BG SAMPLE SITE RIGHT RADIAL; BG TOTAL HEMOGLOBIN 10.8 g/dL (12.0-18.0); BG TOTAL RESPIRATORY RATE 24 b/min; BG VENT MODE VENT - AC
[2023-02-25 09:12] LABS: HEMATOCRIT. 33.3 % (36.0-48.0); HEMOGLOBIN. 10.1 g/dL (12.0-16.0); MEAN CORPUSCULAR HEMOGLOBIN 22.4 pg (28.0-32.0); MEAN CORPUSCULAR VOLUME 73.6 fL (81.0-99.0); MEAN PLATELET VOLUME 8.6 fl (7.4-10.4); PLATELET 83 x1000/uL (130-400); RED BLOOD CELL COUNT 4.52 mill/uL (4.2-5.4); RED CELL DISTRIBUTION WIDTH 26.9 % (11.6-14.6)
[2023-02-25] MEDS: MIDODRINE HCL 5MG TABLET PO SCH ×3 (09:57→16:08)
[2023-02-25 10:04] LABS: PHOSPHORUS 1.6 mg/dL (2.5-4.9)
[2023-02-25] MEDS: INSULIN GLARGINE 100 UNITS/ML SUBCUT SCH (10:04)
[2023-02-25] MEDS: ACETAMINOPHEN 325MG TABLET PO PRN (10:05)
[2023-02-25 11:20] LABS: BG BASE EXCESS -0.6 mmol/L (-2.0-2.0); BG CARBOXYHEMOGLOBIN 1.6 % (0.5-1.5); BG DEOXYHEMOGLOBIN 2.2 % (0.0-5.0); BG FRACTION INSPIRED OXYGEN 40; BG METHEMOGLOBIN 0.3 % (0.0-1.5); BG OXYGEN SATURATION 97.8 % (92.0-98.5); BG OXYHEMOGLOBIN 95.9 % (94.0-97.0); BG PCO2 29.8 mmHg (35.0-45.0); BG PH 7.487 (7.350-7.450); BG PO2 99.7 mmHg (75.0-100.0); BG SAMPLE SITE ALINE; BG TOTAL HEMOGLOBIN 10.9 g/dL (12.0-18.0); BG VENT MODE VENT - CPAP
[2023-02-25 12:07] LABS: NUCLEATED RED BLOOD CELLS 4 /100 WBC
[2023-02-25 12:08] LABS: PLATELET ESTIMATE DECREASED
[2023-02-25] MEDS ORDERED: MAGNESIUM 2 G PREMIX 50 ML IV SCH (12:45)
[2023-02-25] MEDS: LORAZEPAM 2MG/ML CPJ IV PRN (13:02)
[2023-02-25] MEDS: DEXT 5%/0.9% NACL 1,000 ML IV SCH (15:53)
[2023-02-25 16:45] LABS: BG BASE EXCESS -0.3 mmol/L (-2.0-2.0); BG CARBOXYHEMOGLOBIN 1.1 % (0.5-1.5); BG DEOXYHEMOGLOBIN 1.9 % (0.0-5.0); BG FRACTION INSPIRED OXYGEN 40; BG HCO3 ACT 22.5 mmol/L (22.0-26.0); BG METHEMOGLOBIN 0.3 % (0.0-1.5); BG OXYGEN SATURATION 98.1 % (92.0-98.5); BG OXYHEMOGLOBIN 96.7 % (94.0-97.0); BG PCO2 30.5 mmHg (35.0-45.0); BG PH 7.486 (7.350-7.450); BG PO2 106.9 mmHg (75.0-100.0); BG SAMPLE SITE RIGHT RADIAL; BG TOTAL HEMOGLOBIN 10.5 g/dL (12.0-18.0); BG TOTAL RESPIRATORY RATE 26 b/min; BG VENT MODE COOL AEROSOL
[2023-02-25 20:14] LABS: HEPATITIS B SURFACE ANTIGEN NEGATIVE
[2023-02-26] VITALS (75 sets, daily range): BP systolic 85–140; BP diastolic 49–89; PULSE 102–126; RESP 12–41; TEMP 97.9–98.4
[2023-02-26] MEDS: METOCLOPRAMIDE HCL 10MG/2ML VIAL IV SCH ×2 (01:41→05:15)
[2023-02-26] MEDS: PANTOPRAZOLE SODIUM 40 MG/VIAL IV SCH ×2 (05:15→19:00)
[2023-02-26 05:34] LABS: INR 1.3; PROTHROMBIN TIME 14.2 sec (9.6-11.0)
[2023-02-26 05:37] LABS: CHLORIDE 117 mEq/L (98-107)
[2023-02-26 05:43] LABS: HEMATOCRIT. 32.2 % (36.0-48.0); HEMOGLOBIN. 9.7 g/dL (12.0-16.0); MEAN CORPUSCULAR HEMOGLOBIN 22.7 pg (28.0-32.0); MEAN CORPUSCULAR VOLUME 75.1 fL (81.0-99.0); MEAN PLATELET VOLUME 8.5 fl (7.4-10.4); PLATELET 108 x1000/uL (130-400); RED BLOOD CELL COUNT 4.29 mill/uL (4.2-5.4); RED CELL DISTRIBUTION WIDTH 26.9 % (11.6-14.6)
[2023-02-26 05:52] LABS: PHOSPHORUS 1.5 mg/dL (2.5-4.9)
[2023-02-26] MEDS ORDERED: POTASSIUM CHLORIDE INJ 40 MEQ in DEXT 5% WATER 250 ML IV ONE (06:30)
[2023-02-26] MEDS: KCL 20MEQ/100ML X 2 FOR TOTAL KCL 40MEQ/200ML IV SCH ×2 (06:36→09:40)
[2023-02-26] MEDS: BLOOD SUGAR DIAGNOSTIC STRIP TEST SCH ×4 (08:00→21:00)
[2023-02-26] MEDS: INSULIN LISPRO 100 UNITS/ML SUBCUT SCH ×4 (08:20→22:56)
[2023-02-26 08:51] LABS: BG BASE EXCESS 1.1 mmol/L (-2.0-2.0); BG DEOXYHEMOGLOBIN 9.9 % (0.0-5.0); BG FRACTION INSPIRED OXYGEN 21; BG HCO3 ACT 23.3 mmol/L (22.0-26.0); BG OXYHEMOGLOBIN 89.1 % (94.0-97.0); BG PCO2 29.3 mmHg (35.0-45.0); BG PH 7.519 (7.350-7.450); BG SAMPLE SITE RIGHT RADIAL; BG TOTAL HEMOGLOBIN 10.5 g/dL (12.0-18.0); BG VENT MODE ROOM AIR
[2023-02-26] MEDS ORDERED: POTASSIUM PHOS,M-BASIC-D-BASIC 20 MMOL in DEXT 5% WATER 243.3333 ML IV NR (09:00)
[2023-02-26] MEDS: INSULIN GLARGINE 100 UNITS/ML SUBCUT SCH (10:00)
[2023-02-26 10:19] LABS: NUCLEATED RED BLOOD CELLS 5 /100 WBC; PLATELET ESTIMATE SLIGHTLY DECREASED
[2023-02-26] MEDS: DEXT 5%/0.9% NACL 1,000 ML IV SCH (11:53)
[2023-02-26] MEDS: MIDODRINE HCL 5MG TABLET PO SCH ×2 (13:53→18:48)
[2023-02-26 13:59] LABS: CHLORIDE 116 mEq/L (98-107)
[2023-02-26] MEDS: CEFTRIAXONE 2 G in DEXTROSE 5% WATER 50 ML IV SCH (14:06)
[2023-02-27] VITALS (13 sets, daily range): BP systolic 111–150; BP diastolic 76–97; PULSE 110–121; RESP 18–39; TEMP 97.7–98.3
[2023-02-27 05:01] LABS: HEMATOCRIT. 31.3 % (36.0-48.0); HEMOGLOBIN. 9.6 g/dL (12.0-16.0); MEAN CORPUSCULAR HEMOGLOBIN 22.6 pg (28.0-32.0); MEAN CORPUSCULAR VOLUME 73.6 fL (81.0-99.0); MEAN PLATELET VOLUME 8.5 fl (7.4-10.4); PLATELET 127 x1000/uL (130-400); RED BLOOD CELL COUNT 4.25 mill/uL (4.2-5.4); RED CELL DISTRIBUTION WIDTH 26.9 % (11.6-14.6)
[2023-02-27 05:10] LABS: INR 1.3
[2023-02-27 05:21] LABS: CHLORIDE 114 mEq/L (98-107)
[2023-02-27 05:31] LABS: PHOSPHORUS 2.1 mg/dL (2.5-4.9)
[2023-02-27 05:36] LABS: NUCLEATED RED BLOOD CELLS 2 /100 WBC; PLATELET ESTIMATE NORMAL
[2023-02-27] MEDS: PANTOPRAZOLE SODIUM 40 MG/VIAL IV SCH (07:10)
[2023-02-27] MEDS: DEXT 5%/0.9% NACL 1,000 ML IV SCH ×2 (07:11→18:17)
[2023-02-27] MEDS ORDERED: POTASSIUM CHLORIDE 20MEQ TABLET SR PO NR (07:30)
[2023-02-27] MEDS: INSULIN LISPRO 100 UNITS/ML SUBCUT SCH ×4 (08:00→21:00)
[2023-02-27] MEDS: BLOOD SUGAR DIAGNOSTIC STRIP TEST SCH ×4 (08:00→21:00)
[2023-02-27] MEDS ORDERED: POTASSIUM PHOS,M-BASIC-D-BASIC 10 MMOL in DEXT 5% WATER 246.6667 ML IV NR (09:00)
[2023-02-27] MEDS: MIDODRINE HCL 5MG TABLET PO SCH ×4 (09:29→17:00)
[2023-02-27] MEDS: INSULIN GLARGINE 100 UNITS/ML SUBCUT SCH (09:31)
[2023-02-27] MEDS: CEFTRIAXONE 2 G in DEXTROSE 5% WATER 50 ML IV SCH (12:00)
[2023-02-27] MEDS: CARVEDILOL 3.125 MG TABLET PO SCH (12:40)
[2023-02-27] MEDS ORDERED: TETRACAINE/BENZOCAINE/BUTAMBEN 20 GM SPRAY MM ONE (15:00)
[2023-02-27] MEDS ORDERED: LIDOCAINE 2% 6ML GLYDO MM ONE (15:00)
[2023-02-28] VITALS (12 sets, daily range): BP systolic 113–140; BP diastolic 72–99; PULSE 100–121; RESP 10–35; TEMP 98.1–98.7
[2023-02-28] MEDS: PANTOPRAZOLE 40MG DR TABLET PO SCH (06:00)
[2023-02-28] MEDS ORDERED: LIDOCAINE 2% 6ML GLYDO MM ONE (06:32)
[2023-02-28] MEDS ORDERED: TETRACAINE/BENZOCAINE/BUTAMBEN 20 GM SPRAY MM ONE (06:33)
[2023-02-28] MEDS ORDERED: MIDAZOLAM HCL 2 MG/2 ML VIAL ONE (07:06)
[2023-02-28] MEDS ORDERED: FENTANYL CITRATE/PF 50MCG/ML 2ML VIAL ONE (07:07)
[2023-02-28] MEDS: BLOOD SUGAR DIAGNOSTIC STRIP TEST SCH ×4 (08:00→21:35)
[2023-02-28] MEDS: INSULIN LISPRO 100 UNITS/ML SUBCUT SCH ×4 (08:00→21:00)
[2023-02-28 09:12] LABS: HEMATOCRIT. 32.4 % (36.0-48.0)
[2023-02-28 09:15] LABS: CHLORIDE 115 mEq/L (98-107)
[2023-02-28 09:17] LABS: HEMOGLOBIN. 9.7 g/dL (12.0-16.0); MEAN CORPUSCULAR HEMOGLOBIN 22.6 pg (28.0-32.0); MEAN CORPUSCULAR VOLUME 75.3 fL (81.0-99.0); MEAN PLATELET VOLUME 9.1 fl (7.4-10.4); PLATELET 190 x1000/uL (130-400)
[2023-02-28 09:23] LABS: PHOSPHORUS 2.2 mg/dL (2.5-4.9)
[2023-02-28 09:33] LABS: RED CELL DISTRIBUTION WIDTH 30.6 % (11.6-14.6)
[2023-02-28] MEDS ORDERED: POTASSIUM CHLORIDE 20MEQ TABLET SR PO NR (11:00)
[2023-02-28] MEDS: CARVEDILOL 3.125 MG TABLET PO SCH (11:28)
[2023-02-28] MEDS: INSULIN GLARGINE 100 UNITS/ML SUBCUT SCH (11:33)
[2023-02-28] MEDS: CEFTRIAXONE 2 G in DEXTROSE 5% WATER 50 ML IV SCH (12:56)
[2023-02-28] MEDS: DEXT 5%/0.9% NACL 1,000 ML IV SCH (12:57)
[2023-02-28] MEDS ORDERED: POTASSIUM PHOS,M-BASIC-D-BASIC 10 MMOL in DEXT 5% WATER 246.6667 ML IV NR (13:00)
[2023-02-28] MEDS ORDERED: MAGNESIUM 1 G PREMIX 100 ML IV NR (13:00)
[2023-02-28 16:43] LABS: NUCLEATED RED BLOOD CELLS 3 /100 WBC
[2023-02-28 16:44] LABS: PLATELET ESTIMATE NORMAL
[2023-03-01] VITALS (7 sets, daily range): BP systolic 111–134; BP diastolic 68–93; PULSE 97–105; RESP 14–20; TEMP 97.3–98.6
[2023-03-01 06:48] LABS: HEMOGLOBIN 9.7 g/dL (12.0-16.0); MEAN CORPUSCULAR HEMOGLOBIN 24.3 pg (28.0-32.0); MEAN CORPUSCULAR VOLUME 77.8 fL (81.0-99.0); PLATELET 224 x1000/uL (130-400); RED BLOOD CELL COUNT 3.98 mill/uL (4.2-5.4); RED CELL DISTRIBUTION WIDTH 34.2 % (11.6-14.6)
[2023-03-01 06:51] LABS: CHLORIDE 117 mEq/L (98-107)
[2023-03-01 07:01] LABS: PHOSPHORUS 3.3 mg/dL (2.5-4.9)
[2023-03-01] MEDS: PANTOPRAZOLE 40MG DR TABLET PO SCH (07:30)
[2023-03-01] MEDS: INSULIN LISPRO 100 UNITS/ML SUBCUT SCH ×4 (08:00→21:00)
[2023-03-01] MEDS: BLOOD SUGAR DIAGNOSTIC STRIP TEST SCH ×4 (08:00→21:00)
[2023-03-01] MEDS: CARVEDILOL 3.125 MG TABLET PO SCH (08:14)
[2023-03-01] MEDS: INSULIN GLARGINE 100 UNITS/ML SUBCUT SCH (10:00)
[2023-03-01] MEDS ORDERED: MAGNESIUM 1 G PREMIX 100 ML IV NR (11:30)
[2023-03-01] MEDS: CEFTRIAXONE 2 G in DEXTROSE 5% WATER 50 ML IV SCH (12:39)
[2023-03-02] VITALS: BP 114/80; PULSE 94; RESP 18; TEMP 97.4
[2023-03-02 04:00] VITALS: BP_SYST 126; BP_SYST 133; BP_DIAS 74; BP_DIAS 76; PULSE 75; RESP 18; TEMP 97.3; TEMP 97.9
[2023-03-02] MEDS: DEXT 5%/0.9% NACL 1,000 ML IV SCH ×2 (06:50→06:52)
[2023-03-02 08:00] VITALS: BP 165/77; PULSE 90; RESP 18; TEMP 97.7
[2023-03-02] MEDS: BLOOD SUGAR DIAGNOSTIC STRIP TEST SCH ×4 (08:10→21:00)
[2023-03-02] MEDS: INSULIN LISPRO 100 UNITS/ML SUBCUT SCH ×4 (08:10→21:00)
[2023-03-02] MEDS: PANTOPRAZOLE 40MG DR TABLET PO SCH (09:34)
[2023-03-02] MEDS: CARVEDILOL 3.125 MG TABLET PO SCH (09:34)
[2023-03-02] MEDS: INSULIN GLARGINE 100 UNITS/ML SUBCUT SCH (09:40)
[2023-03-02 10:27] LABS: HEMATOCRIT 34.9 % (36.0-48.0); HEMOGLOBIN 10.7 g/dL (12.0-16.0); MEAN CORPUSCULAR HEMOGLOBIN 23.5 pg (28.0-32.0); MEAN CORPUSCULAR VOLUME 76.6 fL (81.0-99.0); PLATELET 285 x1000/uL (130-400); RED BLOOD CELL COUNT 4.55 mill/uL (4.2-5.4); RED CELL DISTRIBUTION WIDTH 34.2 % (11.6-14.6)
[2023-03-02 10:39] LABS: CHLORIDE 114 mEq/L (98-107)
[2023-03-02 10:51] LABS: PHOSPHORUS 3.1 mg/dL (2.5-4.9)
[2023-03-02 12:00] VITALS: BP 128/92; PULSE 103; RESP 18; TEMP 97.3
[2023-03-02] MEDS: CEFTRIAXONE 2 G in DEXTROSE 5% WATER 50 ML IV SCH (12:32)
[2023-03-02] MEDS ORDERED: MAGNESIUM 2 G PREMIX 50 ML IV NR (14:00)
[2023-03-02 16:00] VITALS: BP 113/65; PULSE 94; RESP 18; TEMP 97.5
[2023-03-02 20:00] VITALS: BP 109/71; PULSE 101; RESP 18; TEMP 97.5
[2023-03-03] VITALS: BP 141/84; PULSE 99; RESP 18; TEMP 97.6
[2023-03-03 04:00] VITALS: BP 114/83; PULSE 101; RESP 20; TEMP 97.1
[2023-03-03 06:49] LABS: HEMATOCRIT 32.2 % (36.0-48.0); MEAN CORPUSCULAR HEMOGLOBIN 23.6 pg (28.0-32.0); MEAN CORPUSCULAR VOLUME 75.7 fL (81.0-99.0); PLATELET 304 x1000/uL (130-400); RED BLOOD CELL COUNT 4.25 mill/uL (4.2-5.4); RED CELL DISTRIBUTION WIDTH 35.4 % (11.6-14.6)
[2023-03-03] MEDS: INSULIN LISPRO 100 UNITS/ML SUBCUT SCH ×4 (07:52→20:35)
[2023-03-03] MEDS: BLOOD SUGAR DIAGNOSTIC STRIP TEST SCH ×4 (07:53→20:35)
[2023-03-03 08:00] VITALS: BP 123/88; PULSE 107; RESP 18; TEMP 96.8
[2023-03-03] MEDS: PANTOPRAZOLE 40MG DR TABLET PO SCH (09:58)
[2023-03-03] MEDS: CARVEDILOL 3.125 MG TABLET PO SCH (09:58)
[2023-03-03] MEDS: INSULIN GLARGINE 100 UNITS/ML SUBCUT SCH (09:59)
[2023-03-03 12:00] VITALS: BP 101/71; PULSE 103; RESP 18; TEMP 96.5
[2023-03-03] MEDS: CEFTRIAXONE 2 G in DEXTROSE 5% WATER 50 ML IV SCH (12:20)
[2023-03-03 13:49] LABS: CHLORIDE 112 mEq/L (98-107)
[2023-03-03 13:59] LABS: PHOSPHORUS 2.5 mg/dL (2.5-4.9)
[2023-03-03 16:00] VITALS: BP 124/83; PULSE 84; RESP 18; TEMP 97.7
[2023-03-03 20:00] VITALS: BP 134/78; PULSE 100; RESP 20; TEMP 97.6
[2023-03-04] VITALS (7 sets, daily range): BP systolic 101–137; BP diastolic 71–92; PULSE 104–116; RESP 16–20; TEMP 97.6–98.2
[2023-03-04 06:22] LABS: BASOPHILS % 0.3 % (0.0-2.0); EOSINOPHILS % 0.8 % (0.0-5.0); HEMATOCRIT. 28.6 % (36.0-48.0); HEMOGLOBIN. 9.1 g/dL (12.0-16.0); LYMPHOCYTES % 9.3 % (20.0-50.0); MEAN CORPUSCULAR HEMOGLOBIN 24.6 pg (28.0-32.0); MEAN CORPUSCULAR VOLUME 77.5 fL (81.0-99.0); MEAN PLATELET VOLUME 8.6 fl (7.4-10.4); NEUTROPHILS % 82.6 % (40.0-76.0); PLATELET 273 x1000/uL (130-400); RED BLOOD CELL COUNT 3.69 mill/uL (4.2-5.4); RED CELL DISTRIBUTION WIDTH 37.3 % (11.6-14.6)
[2023-03-04] MEDS: BLOOD SUGAR DIAGNOSTIC STRIP TEST SCH ×4 (07:37→20:35)
[2023-03-04 08:20] LABS: CHLORIDE 111 mEq/L (98-107)
[2023-03-04] MEDS: CARVEDILOL 3.125 MG TABLET PO SCH (08:20)
[2023-03-04] MEDS: PANTOPRAZOLE 40MG DR TABLET PO SCH (08:21)
[2023-03-04] MEDS: INSULIN LISPRO 100 UNITS/ML SUBCUT SCH ×4 (08:22→20:35)
[2023-03-04 08:25] LABS: PHOSPHORUS 2.6 mg/dL (2.5-4.9)
[2023-03-04] MEDS: INSULIN GLARGINE 100 UNITS/ML SUBCUT SCH (10:33)
[2023-03-04] MEDS: CEFTRIAXONE 2 G in DEXTROSE 5% WATER 50 ML IV SCH (12:17)
[2023-03-04] MEDS: LOSARTAN POTASSIUM 25 MG TABLET PO SCH (12:45)
[2023-03-04 15:00] LABS: PLATELET ESTIMATE NORMAL
[2023-03-04] MEDS: ACETAMINOPHEN 325MG TABLET PO PRN (20:35)
[2023-03-05] VITALS: BP 106/70; PULSE 109; RESP 18; TEMP 97.7
[2023-03-05 04:00] VITALS: BP 108/82; PULSE 114; RESP 18; TEMP 98.1
[2023-03-05 04:42] LABS: EOSINOPHILS % 0.3 % (0.0-5.0); MEAN CORPUSCULAR VOLUME 77.8 fL (81.0-99.0); MEAN PLATELET VOLUME 8.6 fl (7.4-10.4)
[2023-03-05 04:52] LABS: INR 1.2; PROTHROMBIN TIME 12.6 sec (9.6-11.0)
[2023-03-05 05:22] LABS: CHLORIDE 112 mEq/L (98-107)
[2023-03-05 05:26] LABS: PHOSPHORUS 2.8 mg/dL (2.5-4.9)
[2023-03-05 05:45] LABS: BASOPHILS % 0.3 % (0.0-2.0); HEMATOCRIT. 30.9 % (36.0-48.0); HEMOGLOBIN. 9.6 g/dL (12.0-16.0); LYMPHOCYTES % 9.1 % (20.0-50.0); MEAN CORPUSCULAR HEMOGLOBIN 24.2 pg (28.0-32.0); MONOCYTES % 4.3 % (2.0-8.0); PLATELET 241 x1000/uL (130-400); RED BLOOD CELL COUNT 3.97 mill/uL (4.2-5.4); RED CELL DISTRIBUTION WIDTH 36.9 % (11.6-14.6)
[2023-03-05] MEDS: INSULIN LISPRO 100 UNITS/ML SUBCUT SCH ×3 (05:59→20:49)
[2023-03-05] MEDS: BLOOD SUGAR DIAGNOSTIC STRIP TEST SCH ×3 (06:00→20:49)
[2023-03-05 08:00] VITALS: BP 133/94; PULSE 113; RESP 18; TEMP 97.6
[2023-03-05] MEDS ORDERED: MAGNESIUM 2 G PREMIX 50 ML IV SCH (09:00)
[2023-03-05] MEDS: PANTOPRAZOLE 40MG DR TABLET PO SCH (10:14)
[2023-03-05] MEDS: INSULIN GLARGINE 100 UNITS/ML SUBCUT SCH (10:14)
[2023-03-05] MEDS: CARVEDILOL 3.125 MG TABLET PO SCH (10:14)
[2023-03-05] MEDS: LOSARTAN POTASSIUM 25 MG TABLET PO SCH (10:15)
[2023-03-05 12:00] VITALS: BP 115/77; PULSE 109; RESP 18; TEMP 97.8
[2023-03-05] MEDS: CEFTRIAXONE 2 G in DEXTROSE 5% WATER 50 ML IV SCH (12:00)
[2023-03-05 16:00] VITALS: BP 99/61; PULSE 110; RESP 20; TEMP 98
[2023-03-05 20:00] VITALS: BP 107/74; PULSE 102; RESP 20; TEMP 97.5
[2023-03-06] MEDS ORDERED: CEFTRIAXONE 2GM/50ML (ADDEASE) 50 ML IV SCH (12:00)
== END 2023-03-05 21:35 | DRG 710 ==
LOC: ER 00:41 → CVICU 03:05 → 5EST 02-26 23:45 → 7WST 03-01 16:26
PROVIDERS: ADMIT Internal Medicine; ATTEND Internal Medicine
PROC: 5A1955Z Respiratory Ventilation, Greater than 96 Consecutive Hours (ICD-10-PCS; 2023-02-17)
PROC: 0BH17EZ Insertion of Endotracheal Airway into Trachea, Via Natural or Artificial Opening (ICD-10-PCS; 2023-02-17)
PROC: 05H933Z Insertion of Infusion Device into Right Brachial Vein, Percutaneous Approach (ICD-10-PCS; 2023-02-17)
PROC: B54MZZA Ultrasonography of Right Upper Extremity Veins, Guidance (ICD-10-PCS; 2023-02-17)
PROC: 30233K1 Transfusion of Nonautologous Frozen Plasma into Peripheral Vein, Percutaneous Approach (ICD-10-PCS; 2023-02-17)
PROC: 30233N1 Transfusion of Nonautologous Red Blood Cells into Peripheral Vein, Percutaneous Approach (ICD-10-PCS; 2023-02-17)
PROC: 0DH67UZ Insertion of Feeding Device into Stomach, Via Natural or Artificial Opening (ICD-10-PCS; 2023-02-17)
PROC: 0W9D0ZZ Drainage of Pericardial Cavity, Open Approach (ICD-10-PCS; principal; 2023-02-18)
PROC: 4A00X4Z Measurement of Central Nervous Electrical Activity, External Approach (ICD-10-PCS; 2023-02-24)
DX: A41.9 Sepsis, unspecified organism (principal); J96.01 Acute respiratory failure with hypoxia; J69.0 Pneumonitis due to inhalation of food and vomit; G92.8 Other toxic encephalopathy; R65.21 Severe sepsis with septic shock; R57.0 Cardiogenic shock; I21.A1 Myocardial infarction type 2; I50.21 Acute systolic (congestive) heart failure; E43 Unspecified severe protein-calorie malnutrition; I30.1 Infective pericarditis; I85.00 Esophageal varices without bleeding; R57.8 Other shock; D68.9 Coagulation defect, unspecified; K76.82 Hepatic encephalopathy; D62 Acute posthemorrhagic anemia; E87.4 Mixed disorder of acid-base balance; I42.9 Cardiomyopathy, unspecified; I31.39 Other pericardial effusion (noninflammatory); Z20.822 Contact with and (suspected) exposure to COVID-19; I11.0 Hypertensive heart disease with heart failure; K74.60 Unspecified cirrhosis of liver; E86.1 Hypovolemia; F10.10 Alcohol abuse, uncomplicated; J84.9 Interstitial pulmonary disease, unspecified; R31.9 Hematuria, unspecified; I38 Endocarditis, valve unspecified; D50.9 Iron deficiency anemia, unspecified; E87.6 Hypokalemia; E83.39 Other disorders of phosphorus metabolism; D69.6 Thrombocytopenia, unspecified; E11.65 Type 2 diabetes mellitus with hyperglycemia; E83.42 Hypomagnesemia; E88.09 Other disorders of plasma-protein metabolism, not elsewhere classified; I07.1 Rheumatic tricuspid insufficiency; I42.0 Dilated cardiomyopathy; I47.1 Supraventricular tachycardia; I48.91 Unspecified atrial fibrillation; K56.7 Ileus, unspecified; K70.10 Alcoholic hepatitis without ascites; Z68.27 Body mass index [BMI] 27.0-27.9, adult; Z78.1 Physical restraint status; Z79.4 Long term (current) use of insulin; Z79.899 Other long term (current) drug therapy; Z82.49 Family history of ischemic heart disease and other diseases of the circulatory system; Z83.2 Family history of diseases of the blood and blood-forming organs and certain disorders involving the immune mechanism
CPT/HCPCS: 31500; 36415; 36573; 36600; 71045; 74018; 76700; 80048; 80053; 80076; 80202; 80305; 80320; 81003; 82010; 82105; 82140; 82375; 82550; 82553; 82607; 82728; 82746; 82805; 82962; 83036; 83540; 83550; 83605; 83615; 83735; 83880; 84100; 84145; 84425; 84439; 84443; 84484; 84703; 85014; 85018; 85025; 85027; 85044; 86038; 86705; 86709; 86803; 86850; 86900; 86920; 86927; 87070; 87075; 87102; 87116; 87210; 87340; 87389; 87426; 88108; 88305; 88312; 92610; 93005; 93306; 93308; 93312; 93970; 94002; 94003; 94640; 94660; 95816; 97116; 97162; 97166; 97530; 99291; A6261; C1725; C9113; J0282; J0690; J0696; J1815; J1940; J2060; J2250; J2354; J2370; J2405; J2543; J2704; J2765; J3010; J3370; J3411; J3430; J3475; J3480; J3490; J7042; J7050; J7060; L3908; P9016; P9017; P9047; A4315; G0480